=== PATIENT | male | born 1965 | race Caucasian/White ===

== ENCOUNTER → 2019-02-08 | Outpatient (CLI) | payer SELFPAY ==
--- NOTE | 2019-02-09 09:32 | US ---
EXAM DESCRIPTION: Soft Tissue,Extremity: ULTRASOUND. CLINICAL HISTORY: 53 years Male SKIN MASS patient receives bilateral buttock injections of medication. COMPARISON: None Available. TECHNIQUE: Transcutaneous scanning: Duron-scale and Doppler modes. FINDINGS: Scanning of the right buttock in the area where palpable mass is visualized. Inhomogeneous tissues with hyperechoic periphery and hypoechoic central. Dimensions are 4.1 x 3.2 x 1.1 cm. Nonvascular. This is in the subcutaneous tissues. IMPRESSION: More likely hematoma than abscess in the palpable mass right buttock. Electronically signed by: Octavio Barraza MD 02/09/2019 9:30 AM CDT
== END ==
LOC: US 09:39
PROVIDERS: ATTEND Family Medicine
DX: R22.2 Localized swelling, mass and lump, trunk (principal)